=== PATIENT | male | born 1935 | race Caucasian/White ===

== ENCOUNTER → 2016-07-27 | Outpatient (CLI) | payer OTHER ==
[~2016-07-27] MED LIST: ASPI-496 PO; CYAN500L PO; MAGN30TA2 PO; METO25TA9 PO; MULT9LIQ10 PO; POTA20LI PO; PRAV40TA2 PO; SAW100PO PO
== END | disposition home or self-care (01) ==
LOC: ROC 09:05
PROVIDERS: ATTEND Radiology Radiation Oncology
DX: C61 Malignant neoplasm of prostate (principal)
CPT/HCPCS: 99212; G0463

== ENCOUNTER → 2017-07-28 | Outpatient (CLI) | payer OTHER ==
[~2017-07-28] MED LIST changes: -CYAN500L PO; +CYAN500L2 PO; +METO-282 PO; -METO25TA9 PO
== END | disposition home or self-care (01) ==
LOC: ROC 10:51
PROVIDERS: ATTEND Radiology Radiation Oncology
DX: C61 Malignant neoplasm of prostate (principal)
CPT/HCPCS: 99212; G0463

== ENCOUNTER 2018-09-26 11:27 | Outpatient (CLI) | payer MEDICARE, OTHER ==
[~2018-09-26 11:27] MED LIST changes: -POTA20LI PO; +POTA20LI2 PO
== END 2018-09-26 23:59 | disposition home or self-care (01) ==
LOC: ROC 11:27
PROVIDERS: ATTEND Radiology Radiation Oncology
DX: C61 Malignant neoplasm of prostate (principal)
CPT/HCPCS: 99212; G0463

== ENCOUNTER → 2020-01-22 | Outpatient (CLI) | payer MEDICARE | END | disposition home or self-care (01) | LOC: ROC 10:12 | PROVIDERS: ATTEND Radiology Radiation Oncology | DX: Z08 Encounter for follow-up examination after completed treatment for malignant neoplasm (principal); Z85.46 Personal history of malignant neoplasm of prostate | CPT/HCPCS: 99212; G0463 ==